=== PATIENT | female | born 1985 | race Caucasian/White ===

== ENCOUNTER → 2024-07-07 17:02 | Outpatient (CLI) | payer OTHER, SELFPAY ==
[2024-07-07 18:15] LABS: Natera Collection Specimen Collected
[2024-07-07 18:26] LABS: Appearance Urine UA CLEAR; Bilirubin Urine UA NEGATIVE (NEGATIVE); Color Urine UA YELLOW; Glucose Urine UA NEGATIVE (Negative); Ketones Urine UA NEGATIVE (NEGATIVE); Leukocyte Esterase Urine UA NEGATIVE (NEGATIVE); Nitrite Urine UA NEGATIVE (Negative); Occult Blood Urine UA TRACE-INTACT (Negative); Protein Urine UA NEGATIVE (Negative); Specific Gravity Urine UA 1.015 (1.000-1.035); Urobilinogen Urine UA 0.2 E.U./dL (0.2)
[2024-07-07 18:27] LABS: Add Manual Diff / Slide Review NO; Basophils Absolute Auto 100 /uL (0-100); Basophils Percent Auto 0.9 % (0-2); Eosinophils Absolute Auto 800 /uL (0-450); Eosinophils Percent Auto 6.9 % (2-4); Hematocrit 37.6 % (36-46); Hemoglobin 12.8 g/dL (12.0-16.0); Lymphocytes Absolute Auto 1800 /uL (1100-4500); Lymphocytes Percent Auto 15.6 % (25-40); Mean Corpuscular Hemoglobin 30.3 PG (26-34); Mean Corpuscular Volume 89.2 fL (80-100); Monocytes Absolute Auto 600 /uL (0-900); Monocytes Percent Auto 5.4 % (3-14); Neutrophils Absolute Auto 8100 /uL (1500-7000); Neutrophils Percent Auto 71.2 % (50-75); Platelet Count 271 X10^3/uL (150-400); Red Blood Cell Count 4.21 X10^6/uL (4.0-5.2); Red Cell Distribution Width 14.3 % (11.6-14.8); White Blood Cell Count 11.4 X10^3/uL (4.5-11.0)
[2024-07-07 19:13] LABS: Free T4, Direct Thyroxine 0.67 ng/dL (0.78-2.19)
[2024-07-07 19:17] LABS: Thyroid Stimulating Hormone 7.11 uIU/mL (0.47-4.68)
[2024-07-07 19:29] LABS: Hepatitis B Surface Antigen NEGATIVE s/c (NEGATIVE)
[2024-07-07 19:47] LABS: HIV 1 & 2 Ab/Ag 4th Gen Combo NEGATIVE (NEGATIVE); Hep C Virus Ab w/Reflex Quant NEGATIVE s/c (NEGATIVE)
[2024-07-09 08:11] LABS: RPR Screen Non Reactive (Non Reactive)
[2024-07-09 11:36] LABS: Varicella IgG Antibody Reactive (Non Reactive)
== END ==
PROVIDERS: PCP Nurse Practitioner Family; Referring Provider Family Medicine; Visit Provider Family Medicine
DX: Z34.80 Encounter for supervision of other normal pregnancy, unspecified trimester (principal)
CPT/HCPCS: 36415; 80055; 81003; 84439; 84443; 86787; 86803; 86850; 86900; 86901; 87086; 87389